=== PATIENT | female | born 2005 | race Caucasian/White ===

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

== ENCOUNTER 2023-07-23 17:10 | Observation (INO) | payer OTHER, SELFPAY ==
--- NOTE | ~2023-07-23 | US_ITS ---
EXAMINATION: US OB limited DATE: 07/23/2023 18:16 INDICATION: Fall during third trimester . TECHNIQUE: Real-time ultrasound of the pelvis was performed. The interpreting radiologist was not pre sent for the study. COMPARISON: None. FINDINGS: There is a single living fetus in vertex presentation. The placenta is posterior fundal and appears unremarkable. No evident subchorionic hematoma delayed small portion of the posterior margin of the p lacentas obscured by the fetus. heart rate is 130 beats per minute (bpm). The amniotic fluid in dex is 20.0 cm, which is normal (5th%-95%: 7.2-22.6 cm at weeks estimated gestational age) . IMPRESSION: 1. Single living fetus in vertex presentation with heart rate of 130 bpm. 2. Normal amniotic fluid index of 20.0 cm. Reviewed, dictated and finalized at location A. IMPRESSION: 1. Single living fetus in vertex presentation with heart rate of 130 bpm . 2. Normal amniotic fluid index of 20.0 cm.
--- NOTE | 2023-07-23 17:10 | LDADM ---
This patient, Maki Arndt, was admitted to OB Post 116 on 07/23/23 at 17:10. Plans for labor, pain management and were discussed with patient. Patient/family oriented to hospital policies and general routines including ID bracelet, bed and alarms, visiting hours, pain management, procedures, bathroom and other care routines, personal items, smoking policy, room service/diet and guest tray routines, security routines, and visiting hours. Patient/Family are encouraged to report perceived risks to care and to ask questions if they do not understand what they are told or what they should do. See OBIX for further documentation.
--- NOTE | 2023-07-23 17:32 | PC.NURSE ---
pt reports falling down the stairs around 1615 this afternoon. Pt denies any bleeding, no leaking of fluid, no pain and has felt baby move. Pt states she did not hit her belly. She states that she only hit her butt going down but did fall from the top stair all the way to the bottom stair. Pt has no complaints, only that she felt like her belly was shook up during the fall.
[2023-07-23 17:45] VITALS: BP 108/76; PULSE 91
--- NOTE | 2023-07-23 17:52 | PC.NURSE ---
Addendum entered by Sarah Beth Murray RN 07/23/23 18:08: ordered 2 hours of monitoring as well. Original Note: Dr. Dawn on the unit. reviewed tracing on the monitor. notified that pt fell down the stairs. pt has no bleeding, no pain and denies feeling ctxs. Order received for pt to have ultrasound for placenta check and JOSE.
[2023-07-23 17:56] VITALS: BMI 35.5
--- NOTE | 2023-07-23 18:42 | PC.NURSE ---
183: Dr. Dawn in department. Placenta and JOSE US report given to Dr. Dawn. Dr. Dawn gave verbal orders that patient can be discharged after FHT for 2 hours or patient can start her induction tonight. Patient verbalized her wishes to go home and get packed and return tomorrow. She will return tomorrow evening for her scheduled induction. Juancarlos Sylvester RN
--- NOTE | 2023-08-13 10:54 | PM.OBTRLD ---
OB - Triage/Final Diagnosis Visit Information Comments/Additional reasons for admission: I have assessed the risk for this patient, Maki Arndt, and determined that she would benefit from observation care. Final Diagnosis (1) Fall: Code(s): W19.XXXA - Unspecified fall, initial encounter Status: Acute
== END 2023-07-23 20:40 ==
PROVIDERS: Admitting Provider Obstetrics & Gynecology; Visit Provider Obstetrics & Gynecology
DX: Z04.3 Encounter for examination and observation following other accident (principal); O26.893 Other specified pregnancy related conditions, third trimester; W19.XXXA Unspecified fall, initial encounter; Z3A.39 39 weeks gestation of pregnancy
CPT/HCPCS: 76815; G0378; G0379

== ENCOUNTER 2023-07-24 15:49 | Inpatient (IN) | payer OTHER, SELFPAY ==
[2023-07-24] VITALS (30 sets, daily range): BP systolic 41–126; BP diastolic 25–86; PULSE 65–98; TEMP 36.4–36.6; BMI 35.1
[2023-07-24 16:26] LABS: Basophils Absolute Auto 0.1 K/mm3 (0.0-0.1); Basophils Percent Auto 0.5 % (0.2-1.2); Eosinophils Percent Auto 0.4 % (0-4.4); Hematocrit 34.5 % (37.0-47.0); Hemoglobin 11.5 g/dL (12.0-15.0); Immature Granulocyte Absolute 0.07 K/mm3 (0.00-0.031); Immature Granulocyte Percent A 0.6 % (0-0.5); Lymphocytes Absolute Auto 1.81 K/mm3 (0.9-3.2); Lymphocytes Percent Auto 16.5 % (18.3-44.2); Mean Corpuscular HGB Conc 33.3 g/dl (32-36); Mean Corpuscular Hemoglobin 31.3 pg (26-34); Mean Corpuscular Volume 93.8 fl (80-100); Mean Platelet Volume 11.3 fl (7.4-10.4); Monocytes Absolute Auto 0.8 K/mm3 (0.1-0.6); Monocytes Percent Auto 7.7 % (2.6-8.5); Neutrophils Absolute Auto 8.1 K/mm3 (1.3-6.7); Neutrophils Percent Auto 74.3 % (45.5-73.1); Platelet Count Result 306 k/mm3 (150-375); Red Blood Count 3.68 M/mm3 (4.2-5.4); Red Cell Distribution Width 13.9 % (11.5-14.5)
[2023-07-24] MEDS: LACTATED RINGERS 1,000 ML 125 ML IV CONT ×2 (16:29→20:44)
--- NOTE | 2023-07-24 16:33 | LDADM ---
This patient, Maki Arndt, was admitted to Labor/Delivery/Recovery 105 on 07/24/23 at 15:49. Plans for labor, pain management and were discussed with patient. Patient/family oriented to hospital policies and general routines including ID bracelet, bed and alarms, visiting hours, pain management, procedures, bathroom and other care routines, personal items, smoking policy, room service/diet and guest tray routines, infant security routines, and visiting hours. Patient/Family are encouraged to report perceived risks to care and to ask questions if they do not understand what they are told or what they should do. See OBIX for further documentation.
[2023-07-24] MEDS: miSOPROStol 25 MCG TABLET 50 MCG VAGINAL (17:08)
[2023-07-24] MEDS: miSOPROStol 25 MCG TABLET BY MOUTH (23:27)
[2023-07-25] VITALS (100 sets, daily range): BP systolic 83–152; BP diastolic 41–93; PULSE 48–111; RESP 16–18; TEMP 36.4–37.1; O2SAT 82–100
[2023-07-25] MEDS: miSOPROStol 25 MCG TABLET BY MOUTH (03:42)
--- NOTE | 2023-07-25 06:46 | WPDANESEPP ---
Anes - Eval Pre Procedure Procedure: labor epidural Date/Time: 07/25/23 06:46 Surgeon: kaycee Preop Diagnosis: pain during labor Pre Op Diagnosis: IOL Patient Data Age: 18 Gender: F Height: 1.6 m Weight: 90 kg Last Vital Signs Temp 36.4 C 07/25/23 05:50 Pulse 61 07/25/23 06:30 BP 83/70 L 07/25/23 06:30 O2 Del Method Room Air 07/24/23 16:33 Allergies Allergy/AdvReac Type Severity Reaction Status Date / Time metoclopramide [From Reglan] Allergy Rash Verified 06/29/23 13:42 Home Medications Medication Instructions Recorded Confirmed Type capsaicin 0.025 % topical cream 1 applic topical TID #25 grams 06/05/20 06/08/20 Rx ondansetron HCl 4 mg tablet 4 mg PO Q6H PRN nausea and 06/05/20 06/08/20 Rx (Zofran) vomiting #14 tabs Laboratory Tests 07/24/23 16:18 WBC 11.0 H K/mm3 (4.5-10.0) RBC 3.68 L M/mm3 (4.2-5.4) Hgb 11.5 L g/dL (12.0-15.0) Hct 34.5 L % (37.0-47.0) MCV 93.8 fl (80-100) MCH 31.3 pg (26-34) MCHC 33.3 g/dl (32-36) RDW 13.9 % (11.5-14.5) Plt Count 306 k/mm3 (150-375) MPV 11.3 H fl (7.4-10.4) Immature Gran % (Auto) 0.6 H % (0-0.5) Neut % (Auto) 74.3 H % (45.5-73.1) Lymph % (Auto) 16.5 L % (18.3-44.2) [place] % (Auto) 7.7 % (2.6-8.5) Eos % (Auto) 0.4 % (0-4.4) Baso % (Auto) 0.5 % (0.2-1.2) Lymph # (Auto) 1.81 K/mm3 (0.9-3.2) [place] # (Auto) 0.8 H K/mm3 (0.1-0.6) Eos # (Auto) 0.0 K/mm3 (0-0.3) Baso # (Auto) 0.1 K/mm3 (0.0-0.1) Abs Immat Gran (auto) 0.07 H K/mm3 (0.00-0.031) Absolute Neuts (auto) 8.1 H K/mm3 (1.3-6.7) Absolute Nucleated RBC 0.000 K/mm3 (0.0-0.012) Nucleated RBC % 0.0 % (0.0-0.2) RPR Pending Blood Type O Positive Antibody Screen Negative Patient hx anesthesia problems: none Family hx anesthesia problems: none Results Review: All pre-operative results and documents have been reviewed as part of the pre-operative evaluation. [facility] Past Medical History Medical History (Updated 07/25/23 @ 06:46 by Rebecca Dias CRNA) Anxiety Cannabinoid hyperemesis syndrome GERD (gastroesophageal reflux disease) IUP (intrauterine ), incidental Obesity Surgical History Surgical History No significant past surgical history Family History Family History Mother Family history non-contributory Social History Social History Social History: She is living with her transgender parent went from male to female. Smoking status: Never smoker Second hand tobacco smoke exposure: No Substance use: never Substance use type: marijuana Other substance usage details: Occasional Do You Feel Safe in your Home?: Yes Lack of Transportation: No Lack of Food: Never True Current Housing: I Have Housing Concerned About Future Housing: No Difficulty Paying Gas/Electric Bills: No Difficulty Paying for Meds: No Currently Unemployed: No Education: High School Diploma/GED Difficulty w/ Childcare or Family Care: No Gender identity (if verbalized by the patient): Female Spiritual care concerns: No Exam Day of Procedure 07/25/23 06:46
--- NOTE | 2023-07-25 07:17 | WPDOBADMIT ---
Obstetrics - Admit Note Admission Note: record reviewed. No pertinent additions to the history and/or any subsequent changes in the physical findings that are not consistent with the expected course of the were found. Additions to the history and/or subsequent changes in the physical findings follow. Elective IOL, SVE /-2 AROM moderate amount of clear, odorless fluid, anticipate vaginal delivery
[2023-07-25] MEDS: OXYTOCIN 30 UNITS/NS 500 ML 30 UNITS/500 ML BAG IV CONT (08:06)
[2023-07-25] MEDS: fentaNYL CITRATE INJ (*CRX) 100 MCG/2 ML VIAL 50 MCG IV PUSH (08:53)
[2023-07-25] MEDS: LACTATED RINGERS 1,000 ML 125 ML IV CONT ×2 (08:54→10:16)
[2023-07-25] MEDS: ONDANSETRON INJ 4 MG/2 ML VIAL IV PUSH (09:26)
[2023-07-25] MEDS: fentaNYL CITRATE INJ (*CRX) 100 MCG/2 ML VIAL IV PUSH (09:42)
--- NOTE | 2023-07-25 12:24 | PM.OBPRVD ---
OB - Vaginal Delivery Note Procedure Delivery date: 07/25/23 Induction method: AROM, Per Misoprostol Protocol and Per Pitocin Protocol Delivery monitor: External FHT and External Uterine Route of delivery: Episiotomy description: None Laceration Description: None Specimen: No Quantitative Blood Loss (ml): 130 Anesthesia type: Epidural Disposition: Floor Narrative: head delivered and compound presentation noted, slowly delivered anterior shoulder, then cord X 1 around arm, slowly delivered the rest of the baby without complication, mother and baby skin to skin in stable condition [place] Baby Date of : 07/25/23 Time of : 12:09 Weeks of gestation at delivery: 39 gender: Female presentation: vertex position: Right Occiput Anterior Placenta delivery description: Spontaneous Cord Vessel Description: 3 Vessels, Delayed Cord Clamping and Around Extremity (x1) score one minute: 8 score five minutes: 9
[2023-07-25] MEDS: OXYTOCIN 30 UNITS/NS 500 ML 30 UNITS/500 ML BAG 125 UNITS IV CONT (12:46)
[2023-07-25 15:20] LABS: Rapid Plasma Reagin Non-Reactive (NonReactive)
--- NOTE | 2023-07-25 17:42 | OBPPTRN ---
1507-Patient transferred to post room #282 via wheelchair. Support person present. Oriented to unit, room, information board, rooming in, admission packet and security measures. Patient verbalizes understanding.
--- NOTE | 2023-07-25 18:01 | PC.NURSE ---
1600-Upon arrival to floor mother called out stating she wanted formula bottles; Mother told RN that she wanted to breast & bottle feed so she wanted to have formula in her crib drawer.
[2023-07-25] MEDS: IBUPROFEN 600 MG TABLET PO (19:44)
[2023-07-26 01:54] VITALS: BP 112/65; PULSE 79; RESP 18; TEMP 36.6; O2SAT 99
[2023-07-26 06:05] LABS: Hematocrit 30.4 % (37.0-47.0); Hemoglobin 9.9 g/dL (12.0-15.0)
[2023-07-26] MEDS: DOCUSATE SODIUM 100 MG CAPSULE PO ×2 (06:53→15:45)
[2023-07-26] MEDS: MULTIVIT/MIN/PREN/FOL AC/IRON TABLET 1 TAB PO (06:53)
[2023-07-26] MEDS: POLYSACCHARIDE IRON COMPLEX 150 MG CAPSULE PO ×2 (06:53→15:45)
--- NOTE | 2023-07-26 07:44 | PM.OBPNVD ---
OB - PN: Subj Subjective Date/time seen: 07/26/23 07:44 Interval history: pp day 1 s/p vaginal delivery doing well OB - PN: Obj Data Labs 07/26/23 04:24 Labs: Laboratory Results - last 24 hr 07/24/23 07/26/23 16:18 04:24 Hgb 9.9 L Hct 30.4 L RPR Non-reactive OB - PN A/P Plan day: 1 Time Spent With Patient Time: Total time spent is greater than 50% in coordination of care (as documented) at patient's floor/unit and/or counseling patient: Review of Systems Review of Systems: All systems reviewed & are unremarkable except as noted in HPI and below Exam Const: General: cooperative and healthy appearing Chest: Chest palpation & inspection: normal inspection of the chest Resp: Effort & Inspection: normal respiratory effort Auscultation: clear to auscultation bilaterally Cardio: Rate: regular rate Rhythm: regular rhythm Back/Spine/Pelvis: Back: no CVA tenderness Skin: General skin exam: normal color Neuro: General: patient oriented x3 Extrem: Right lower extremity: normal to inspection Left lower extremity: normal to inspection Psych: Appearance: grossly normal
[2023-07-26 08:35] VITALS: BP 121/57; PULSE 93; RESP 16; TEMP 36.4; O2SAT 100
--- NOTE | 2023-07-26 14:12 | PC.NURSE ---
[id number] Introductions were made, then consulted with patient to assess needs related to . Discussed with mother her?plans to feed?her infant and the?experience so far. We discussed protecting the milk supply with frequent latching to the breast and pumping if is receiving a bottle of formula. Encouraged understanding of the benefits of skin to skin (demonstrating unwrapping infant and placing upright on her chest), stimulating with massage touch, changing positions to encourage wakefulness, how to watch for early feeding cues, responsive feeding, feeding on demand (aiming for 8-12 times in 24 hours, about every 2-3 hours), milk production, building/maintaining a milk supply, duration of feeding, signs of adequate intake/output and how to record on the feeding sheet. Mother voiced understanding of skin to skin, on demand and encouraging infant to wake and breastfeed if it has been 2 -2.5 hours since the start of the last , to call if does not latch, or if there is discomfort with . Resources used for education were facilitated with the visual educational handouts/ tool/mom and baby guide. Inpatient/outpatient resources provided with feeding sheet, name written on the communication board, and the mom/baby guide. Parents voiced understanding of information, demonstrated learning and will call if there is a request for assistance. Encouraged paced bottle feeding. Father of baby demonstrates understanding. [id number] Pump taken into the room to initiate pumping with Radha Mosley RN. Instructions given on cleaning, care, usage, that there should be no pain, pumping schedule for milk production, collection, and storage of human milk. Patient was assessed for correct placement, flange size (21mm), to pump for comfort and nipple stretching/stimulation for adequate milk production every 3 hours (8 times in 24 hours) 1-2 times at night. Parents are encouraged to record the pumping schedule on the feeding sheet. EBM will be saved for the next feeding.?Mother voiced understanding of the education shared along with mom/baby guide and the pump measurement, flange fit handout for additional resource information. Reported to the Primary RN.
[2023-07-26] MEDS: IBUPROFEN 600 MG TABLET PO (15:45)
--- NOTE | 2023-07-26 15:57 | WPDANLDPN2 ---
Anes-Prog Note L&D Date/Time: 07/26/23 15:57 Comfortable throughout: labor and delivery Neuraxial method: epidural Epidural/Spinal procedure site: clean & non-tender Neuro status: Neuro function grossly intact. Cardiovascular status: normal Respiratory status: normal Airway patency: baseline Mental status: baseline Post-Op hydration status: normal Vital Signs: Last Vital Signs Temp 36.4 C 07/26/23 08:35 Pulse 93 07/26/23 08:35 Resp 16 07/26/23 08:35 BP 121/57 L 07/26/23 08:35 Pulse Ox 100 07/26/23 08:35 O2 Del Method Room Air 07/25/23 22:22 Pain score (VAS): 03/14 Post-procedural complaints: none Patient feedback: Patient satisfied with anesthetic care.
[2023-07-26 20:26] VITALS: BP 109/79; PULSE 89; RESP 16; TEMP 36.8; O2SAT 100
[2023-07-27] MEDS: POLYSACCHARIDE IRON COMPLEX 150 MG CAPSULE PO (07:20)
[2023-07-27] MEDS: DOCUSATE SODIUM 100 MG CAPSULE PO (07:20)
[2023-07-27] MEDS: IBUPROFEN 600 MG TABLET PO (07:21)
[2023-07-27 08:10] VITALS: BP 110/49; PULSE 75; RESP 16; TEMP 36.8; O2SAT 100
--- NOTE | 2023-07-27 08:13 | PM.OBPNVD ---
OB - PN: Subj Subjective Date/time seen: 07/27/23 08:13 Interval history: pp day 2 s/p vaginal delivery doing well OB - PN: Obj Data Labs 07/26/23 04:24 OB - PN A/P Plan day: 2 Plan: routine care and discharge home Time Spent With Patient Time: Total time spent is greater than 50% in coordination of care (as documented) at patient's floor/unit and/or counseling patient: Review of Systems Review of Systems: All systems reviewed & are unremarkable except as noted in HPI and below Exam Const: General: cooperative and healthy appearing Chest: Chest palpation & inspection: normal inspection of the chest Resp: Effort & Inspection: normal respiratory effort Cardio: Rate: regular rate Skin: General skin exam: normal color Neuro: General: patient oriented x3
--- NOTE | 2023-07-27 08:15 | P.DS_ITS ---
DS: Admitting Diagnosis Discharge Date 07/27/23 Admitting Diagnosis IOL DS: Discharge Diagnosis Discharge Diagnosis (1) Vaginal delivery: Code(s): O80 - Encounter for full-term uncomplicated delivery Status: Acute OB - DS: Summary OB Procedures : None OB Procedures Intrapartum: Spontaneous Vag Delivery OB Procedures: : None Peripartum Data Laceration Description: None Episiotomy description: None Time Spent with Patient Time attestation: Total time spent providing and/or coordinating discharge services: Discharge Plan Discharge Attending physician on discharge: Rodney Dawn Discharging Clinician: Ana Jolly Patient Disposition: Home, Self-Care Activity: pelvic rest Diet: regular Patient Instructions: Antibiotic Form Stand Alone Forms: General Discharge Information Follow-up/Referrals: Ana Jolly CNM [Certified Nurse Fine Wire Drawer] - 4 Weeks Discharge Medications: New ibuprofen 600 mg Tablet 600 mg PO Q6H PRN (Reason: Cramping) Qty: 30 0RF Continued capsaicin 0.025 % cream 1 applic topical TID Qty: 25 0RF Rx Instructions: do not wash area for at least 30 min after application, apply to abdominal area Discontinued ondansetron HCl [Zofran] 4 mg tablet 4 mg PO Q6H PRN (Reason: nausea and vomiting) Qty: 14 0RF Date of admission: 07/24/23 15:49 Primary Care Provider: UNKNOWN,DOCTOR Admitting Provider: Ramana Clarke Attending physician on admission: Ramana Clarke Condition: Stable
[2023-07-27] MEDS: MULTIVIT/MIN/PREN/FOL AC/IRON TABLET 1 TAB PO (09:50)
--- NOTE | 2023-07-27 10:50 | PC.NURSE ---
[id number] Consulted with mother concerning needs. Mother is feeding appropriately for growth of infant and understands stimulating infant to eat if needed. Infant has had appropriate feedings in the last 24 hours meets the outcomes for weight, output, blood sugar and jaundice at this time. Reinforced understanding of milk production, transition of milk, signs of adequate intake, transition of stool, prevention/relief of engorgement, plugged ducts, mastitis, responsive watching for feeding cues, the different methods of stimulating to breastfeed 1-3 hours after the start of the last feeding, community resources, and when to call a provider using the resource of the feeding sheet along with the mom and baby guide. Parents are interested in taking home a pump provided by insurance and assistance with . Reviewed the [employer] pump [id number] with parents. After feeding cues were visualized by infant mother was given guidance on bringing to the left breast with cross cradle positioning. Infant latched optimally and education given to the mother of how to visualize the suckling (with good rocking jaw motion), swallows (dropping of the lower jaw) and how to listen for drinking at the breast (the ka sound) and demonstrated. was able to maintain latch without pain to mother protecting the nipple with optimal positioning and latching. Reviewed comfort measures of healing with a warm, wet washcloth to rinse breast, then leave open to air-dry, good handwashing when or touching the breast/nipples to prevent infection. Mother voiced understanding of skin to skin, stimulating with massage touch, responsive feedings, hand expressed colostrum, talking to infant to encourage if it has been 2 -2.5 hours since the start of the last , to call if infant does not latch, or if there is discomfort with . Resources used for education were facilitated with the visual educational handouts/mom and baby guide Inpatient/outpatient resources provided with feeding sheet, name written on the communication board, the mom/baby guide and encouraged connection with W.I.C. counselor. Parents voiced understanding of information, demonstrated learning and will call if there is a request for assistance. Reported to the Primary RN. [phone] Purposefully rounded and parents as a team had independently latched infant to the right breast using cradle positioning, mother denies pain and infant is demonstrating effective . Infant has had appropriate feedings in the last 24 hours meets the outcomes for weight, output, blood sugar and jaundice at this time. Reinforced understanding of milk production, transition of milk, signs of adequate intake, transition of stool, prevention/relief of engorgement, plugged ducts, mastitis, responsive watching for feeding cues, the different methods of stimulating to breastfeed 1-3 hours after the start of the last feeding, community resources, and when to call a provider using the resource of the feeding sheet along with the mom and baby guide. Mother voiced understanding of the information shared, is confident to continue effectively her infant at home, when to call for assistance, denies any additional assistance or education at this time.
[2023-07-28 09:17] VITALS: BP 137/74; PULSE 93; RESP 18; TEMP 36.8; O2SAT 99
== END 2023-07-27 12:00 | disposition home or self-care (01) | DRG 560 ==
LOC: ANHLDR 15:53 → ANHOB2 07-25 15:57
PROVIDERS: Advanced Practice Midwife; Admitting Provider Obstetrics & Gynecology; Visit Provider Obstetrics & Gynecology
DX: O43.113 Circumvallate placenta, third trimester (principal); Z37.0 Single live birth; Z3A.39 39 weeks gestation of pregnancy; O32.6XX0 Maternal care for compound presentation, not applicable or unspecified; O69.89X0 Labor and delivery complicated by other cord complications, not applicable or unspecified; O69.82X0 Labor and delivery complicated by other cord entanglement, without compression, not applicable or unspecified
CPT/HCPCS: 36415; 85014; 85018; 85025; 86592; 86850; 86900; 86901; A9270; J2405; J2590; J2795; J3010; J7120

== ENCOUNTER 2024-11-22 09:28 | Outpatient (RCR) | payer OTHER, SELFPAY ==
--- NOTE | ~2024-11-22 | US_ITS ---
EXAMINATION: US OB follow up w BPP, 11/22/2024 11:19 CDT HISTORY: growth and JOSE Comparison: None Technique: Castillo-scale sonographic images were obtained Findings: Single live intrauterine in vertex presentation identified corresponding to 37 weeks and 1 day. The placenta is located anteriorly and fundally and appears unremarkable. JOSE 14.7 heart rate 157 BPD 9.37, 38 weeks and 1 day, HC 23.38, 38 weeks and 1 day, AC 33.56, 37 weeks and 3 days. FL 6.82, 35 weeks and 0 days EFW 3099 g +/- 464 g IMPRESSION: Single live intrauterine detailed above Reviewed, dictated and finalized at location A.
[2024-11-22 10:38] VITALS: BP 133/83; PULSE 92
[2024-11-22 10:48] LABS: Alanine Aminotransferase 15 U/L (6-35); Albumin Level 3.4 g/dL (3.5-5.1); Alkaline Phosphatase 118 U/L (38-126); Anion Gap 6 mmol/L (4-12); Aspartate Amino Transferase 23 U/L (14-36); Bilirubin,Total 0.4 mg/dL (0.2-1.3); Blood Urea Nitrogen 3 mg/dL (7-17); Calcium 8.8 mg/dL (8.4-10.2); Carbon Dioxide 21 mmol/L (22-30); Chloride 107 mmol/L (98-107); Estimated Glomerular Filt Rate > 60; Glucose 84 mg/dL (65-110); Potassium 3.9 mmol/L (3.4-5.0); Sodium 134 mmol/L (137-145); Total Protein 7.0 g/dL (6.3-8.2)
--- NOTE | 2024-11-22 11:39 | PC.NURSE ---
This RN notified Dr. Clarke, library information technician, of patient's NST at 1133 am. Provider made aware of variable noted during NST. Provider updated with BPP/JOSE/ Growth results. No new orders.
[2024-11-28 02:07] LABS: Total Bile Acids 0.60 umol/L (.)
== END 2024-12-03 17:44 | disposition other institution (70) ==
LOC: ANHOBOP 09:28
PROVIDERS: Advanced Practice Midwife; Visit Provider Obstetrics & Gynecology
DX: L29.9 Pruritus, unspecified (principal)
CPT/HCPCS: 36415; 59025; 76816; 76819; 80053; 82542

== ENCOUNTER 2024-11-26 05:55 | Inpatient (IN) | payer OTHER, SELFPAY ==
[2024-11-26] VITALS (154 sets, daily range): BP systolic 71–149; BP diastolic 38–103; PULSE 36–182; RESP 16; TEMP 36.6–37.1; O2SAT 81–100; BMI 37.0
--- OUTSIDE RECORDS SUMMARY | 2024-11-26 06:02 | XMS_ITS | Clinical Summary ---
Author Organization [facility] Address [address] [place] [address] Care Team Providers Care Tail Dogger Name Role Phone Alfa Redding MD Primary Care Provide r Allergies Active Allergy Reactions Criticality Noted Date Comments Metoclopramide Unknown 06/08/2020 Medications No known medications Active Problems Problem Noted Date Diagnosed Date Sexually active child 06/10/2020 Assessment & Plan (06/10/2020 10:08 AM CDT): She is sexually active. She has had mood lability with the depo shot. She desires to have an IUD. Acute gastritis 01/04/2018 Assessment & Plan (06/09/2020 11:18 AM CDT): She has a burning sensation that radiates up the neck and she has a history of gastritis. She has been on a PPI in the past and is no longer taking a PPI. Will monitor for benefit of PPI Plan - PO PPI - Will obtain H. Pylori stool antigen to determine clearance from previous treatment. Assessment & Plan (06/08/2020 6:16 PM CDT): She has a burning sensation that radiates up the neck and she has a history of gastritis. She has been on a PPI in the past and is no longer taking a PPI. Will monitor for benefit of PPI Plan - IV PPI until she able to tolerate PO - Will obtain H. Pylori stool antigen to determine clearance from previous treatment. Cannabinoid hyperemesis syndrome 01/03/2018 Assessment & Plan (06/09/2020 11:18 AM CDT): Maki is a 14-year-old with a history of gastritis and cannabinoid hyperemesis syndrome who presents with 3 days of low abdominal pain and emesis. She has had normal abdominal CT. She had low potassium most likely from vomiting. Her potassium should be rechecked and replenished as needed. The differential for her vomiting includes cannabinoid hyperemesis syndrome, viral gastroenteritis, and pelvic inflammatory disease. Unlikely diagnoses include pancreatitis given normal lipase, appendicitis given normal CT, and diabetes given normal glucose. She does endorse burning with urination. She is sexually active and requested to have STI testing. Will provide supportive care. Plan - Tylenol, Benadryl and Compazine for pain and nausea q6hr - NS fluids with KCl - replete K as needed - Regular diet Assessment & Plan (06/08/2020 6:47 PM CDT): Maki is a 14-year-old with a history of gastritis and cannabinoid hyperemesis syndrome who presents with 3 days of low abdominal pain and emesis. She has had normal abdominal CT. She had low potassium most likely from vomiting. Her potassium should be rechecked and replenished as needed. The differential for her vomiting includes cannabinoid hyperemesis syndrome, viral gastroenteritis, and pelvic inflammatory disease. Unlikely diagnoses include pancreatitis given normal lipase, appendicitis given normal CT, and diabetes given normal glucose. She does endorse burning with urination. She is sexually active and requested to have STI testing. Will provide supportive care. Plan - Obtain CMP, viral multiplex, and UA - Obtain HIV, RPR, GC/CT from urine - Benadryl and Compazine for pain and nausea q6hr - NS fluids with KCl - replete K as needed - Regular diet Assessment & Plan (01/03/2018 5:47 AM CDT): 12 year old female presenting with two days of epigastric abdominal pain, reflux, nausea, and vomiting. CT abdomen obtained at an OSH today raised concern for esophageal perforation, but esophagram obtained at [facility] today demonstrated an intact esophagus. CT abdomen has ruled out other causes of abdominal pain. The pain experienced is most likely related to GERD vs. Acute gastritis. Upon admission and arrival to the floor Maki endorsed pain, and had tenderness to palpation of her epigastrium without any alarming peritoneal signs. Plan to treat pain with 10 cc/kg NS bolus, initiate treatment with Lansoprazole and Maalox, and administer Zofran PRN for nausea. Estimated Date of Delivery Comme nts Yes 12/13/2024 Based on Patient Reported Encounters Date Type Department Care Team Description 10/31/2024 Hospital Encounter [facility] [place] [address] [place] [address] Deya Mendiola DO 08/26/2024 6:16 AM CDT - 08/26/2024 8:35 AM CDT Hospital Encounter [facility] [place] [address] [address] [place] [address] Deya Mendiola DO Discharge Disposition: Discharge to home or self care from Last 3 Months Surgical History Surgery Date Site/Laterality Comments WRIST SURGERY Social History Tobacco Use Types Packs/Day Years Used Date Smoking Tobacco: Former Cigarettes Tobacco Cessation:Counseling Given: Not Answered Personal Safety Answer Date Recorded Have you ever been in or are you currently in a harmful physical or emotional relationship or is someone making you feel afraid or unsafe? Denies 01/15/2023 Estimated Date of Delivery Comme nts Yes 12/13/2024 Based on Patient Reported Sex and Gender Information Value Date Recorded Sex Assigned at Not on file Legal Sex Female 4:59 PM PAPER FINAL INSPECTOR Gender Identity Not on file Sexual Orientation Not on file Obstetrics History Para Term AB IAB SAB Ectopic Multiple Livin g Live Births 2 1 1 Date Outcome GA Total Labor Labor/2nd/3rd Weight Sex Type Anes PTL Verónica A1 A5 Name Clin 024 Term Current Summary Episode Dates Number of Fetuses Estimated Date of Delivery 08/26/2024 - Present (11/26/2024) 12/13/2024 (set by Yola Flanagan CNM on 08/26/2024 based on Patient Reported) Dating Summary Based On SHAHID GA Diff Patient Reported 12/13/2024 Working Vitals Date GA Fund Present FHR Mvmt BP Weight Edema Alb Glu Ket Dil/ Eff/Sta 24w3d Inpatient data not displayed here. See encounter summary. Last Filed Vital Signs Vital Sign Reading Time Taken Comments Blood Pressure 111/65 08/26/2024 7:45 AM CDT Pulse 73 08/26/2024 7:45 AM CDT Temperature 36.1 C (97 F) 01/15/2023 3:51 PM PAPER FINAL INSPECTOR Respiratory Rate 14 01/15/2023 9:13 PM PAPER FINAL INSPECTOR Oxygen Saturation 93% 08/26/2024 6:44 AM CDT Inhaled Oxygen Concentration - - Weight 63.5 kg (140 lb) 01/15/2023 3:51 PM PAPER FINAL INSPECTOR Height 161 cm (5' 3.39) 06/08/2020 4:53 PM CDT Body Mass Index - - Plan of Treatment Health Maintenance Due Date Last Done Comments Cervical Cancer Screening 2003 Depression Screening 2003 DTaP/Tdap/Td Vaccine (1 - Tdap) 06/10/2014 Varicella Vaccines (1 of 2 - 13+ 2-dose series) 06/10/2016 HPV Vaccines (1 - 3-dose series) 06/10/2018 Meningococcal B Vaccine (1 o f 2 - Standard) 2019 Hepatitis B Screening 06/10/2021 Regular Well Visit/Exam 18-64 06/10/2021 Influenza Vaccine (#1) 2024 03/23/2019 Hepatitis C Screening Completed 01/05/2018 Meningococcal Vaccine Aged Out No suzy sammie eligible based on patient's age to complete this topic Pneumococcal vaccine <65 Aged Out No longer eligible based on patient's age to complete this topic Procedures Procedure Name Priority Date/Time Associated Diagnosis Comments URINALYSIS AND REFLEX TO MICROSCOPIC AND CULTURE Routine 08/26/2024 6:32 AM CDT HEPATITIS PANEL, ACUTE STAT 01/05/2018 9:43 AM CDT from Last 3 Months or Most Recently Relevant to Health Maintenance Results * (ABNORMAL) Urinalysis reflex to microscopic and culture Urine, clean voided (08/26/2024 6:32 AM CDT) Color, ur Yellow Yellow Clarity, ur Turbid(A) Clear [facility] ([facility]) Specific gravity, ur 1.023 1.003 - 1.030 [facility] ([facility]) pH, urine 6.0 [facility] ([facility]) Comment: Interpretive Data U rine pH is affected by diet, medications, systemic acid-base disturbances, and renal tubular function. pH may affect urinary stone formation. For example, urine pH below 6.0 may help reduce the tendency for calcium phosphate stones and pH greater than 6.0 may reduce the tendency for uric acid stone formation. Source: [facility] Current Interpretive Data was last revised on 2017 Protein, ur ql Negative Negative [facility] ([facility]) Glucose, ur ql Negative Negative [facility] ([facility]) Ketones, ur Negative Negative [facility] ([facility]) Bilirubin, ur Negative Negative [facility] ([facility]) Blood, ur Negative Negative [facility] ([facility]) Urobilinogen, ur <2.0 <2.0 mg/dL [facility] ([facility]) Nitrite, ur Negative Negative [facility] ([facility]) Leukocyte esterase, ur Negative Negative [facility] ([facility]) UA reflex comment Reflex conditions for microscopic UA and culture not met. [facility] ([facility]) Urine, clean voided 08/26/2024 6:32 AM CDT 08/26/2024 6:40 AM CDT Deya Mendiola DO LAB MICROBIOLOGY - GENE RAL ORDERABLES Final Result [facility] ([facility]) [address] [facility] Department [place] [address] * Hepatitis panel, acute (01/05/2018 9:43 AM CDT) Hep A IgM Nonreactive Nonreactive [facility] Comment: Interpretive Data If test is reported as GRAYZONE, new sample should be drawn in two weeks for testing. Current interpretive data was last revised on 2016. Testing performed by: [facility], [address] [facility] [place] [address] Hep B core IgM Nonreactive Nonreactive [facility] Comment: Interpretive Data If test is reported as GRAYZONE, new sample should be drawn for testing. Current interpretive data was last revised on 2016. Testing performed by: [facility], [address] [place] [address] Hep C Ab Nonreactive Nonreactive [facility] Comment: Interpretive Data Positive and greyzone results should be confirmed by a molecular method. If positive or greyzone, a second separately collected sample should be submitted for Hepatitis C Virus RNA. Detection and Quantitation by Real-Time Reverse Stock Shaper-PCR.Current Interpretive data was last revised on 2016. Testing performed by: [facility], [address] [place]., [address] HepBsAg Nonreactive Nonreactive [facility] Comment:Testing performed by : [facility], [address] [place]., [address] Blood specimen (specimen) 01/05/2018 9:43 AM CDT 01/05/2018 10:[address] [facility] - 01/05/2018 11:20 AM CDT Safia Bills MD LAB MICROBIOLOGY - GENERAL ORDERABLES Edited Result - Final [facility] Department [place] [address] from Last 3 Months or Most Recently Relevant to Health Maintenance Insurance [facility] [employer] Advance Directives For more information, please contact: [phone] * Full Code (Latest Code Status on File) Date Activated Date Inactivated Comments 06/08/2020 5:25 PM 06/10/2020 3:25 PM * Full Code Date Activated Date Inactivated Comments 01/03/2018 4:55 AM 01/06/2018 7:18 PM Care Teams Tail Dogger Relationship Specialty Start Date End Date Alfa Redding MD [address] [place] [address] PCP - General 01/02/18
--- OUTSIDE RECORDS SUMMARY | 2024-11-26 06:02 | XMS_ITS | Clinical Summary ---
Author Organization [facility] Address [address] [place] [id number] Care Team Providers Care Feed Mill Operator Name Role Phone Alfa Redding MD Primary Care Provider [phone] Allergies No known active allergies Medications ondansetron 4 MG tablet 0 Active OLANZapine 5 MG tablet Take 10 mg by mouth. 0 Active medroxyPROGESTERon e injection 0 Active diphenhydrAMINE 25 MG tablet Take 25 mg by mouth every 6 (six) hours as needed. 0 Active capsaicin 0.025 % cream Apply topically every 2 (two) hours as needed. 0 Active cyproheptadine 4 MG tablet 0 Active ondansetron (ZOFRAN-ODT) 4 MG disintegrating tablet Take 1 tablet (4 mg total) by mouth every 8 (eight) hours as needed for Nausea. 20 tablet 3 Active Active Problems No known active problems Social History Tobacco Use Types Packs/Day Years Used Date Smoking Tobacco: Never Smokeless Tobacco: Never Alcohol Use Standard Drinks/Week Comments Never 0 (1 standard drink = 0.6 oz pur e alcohol) AUDIT-C Answer Date Recorded Q1: How often do you have a drink containing alc ohol? Never 01/23/2020 Average Number of Drinks Not on file 020 Frequency of Binge Drinking Not on file 01/04 Comments No Sex and Gender Information Value Date Recorded Sex Assigned at Not on file Legal Sex Female 10:02 PM FENCE MAKING MACHINE OPERATOR Gender Identity Not on file Sexual Orientation Not on file Last Filed Vital Signs Vital Sign Reading Time Taken Comments Blood Pressure 114/70 04/28/2022 3:21 PM FENCE MAKING MACHINE OPERATOR Pulse 84 04/28/2022 3:21 PM FENCE MAKING MACHINE OPERATOR Temperature 36.9 C (98.5 F) 04/28/2022 12:26 PM FENCE MAKING MACHINE OPERATOR Respiratory Rate 16 04/28/2022 3:21 PM FENCE MAKING MACHINE OPERATOR Oxygen Saturation 98% 04/28/2022 3:21 PM FENCE MAKING MACHINE OPERATOR Inhaled Oxygen Concentration - - Weight 81.6 kg (180 lb) 04/28/2022 10:29 AM FENCE MAKING MACHINE OPERATOR Height 165.1 cm (5' 5) 04/28/2022 10:05 AM FENCE MAKING MACHINE OPERATOR Body Mass Index 29.95 04/28/2022 10:05 AM FENCE MAKING MACHINE OPERATOR Plan of Treatment Health Maintenance Due Date Last Done Comments Hepatitis B Vaccines (3 of 3 - 3-dose series) 10/11/2004 08/16/2004, 2003 Annual Physical 06/10/2006 Meningococcal B Vaccine (1 of 2 - Standard) 2019 Hepatitis C 06/10/2021 DTaP, Tdap and Td Vaccines (4 - Tdap) 06/10/2022 08/16/2004, 06/28/2004, 2003, Additional history exists Cervical Cancer Screening Pap Smear (Age 21 to 29) Every 3 Years 01/23/2023 01/24/2020, 01/24/2020, 07/24/2019, Additional history exists Cervical Cancer Screening 01/23/2023 COVID-19 Vaccine ( season) 2024 Meningococcal Vaccine Aged Out 11/03/2014 No suzy sammie eligible based on patient's age to complete this topic HPV Vaccines Completed 10/29/2017, 11/03/2014 Pneumococcal Vaccine: Pediatrics (0 to 5 Years) and At-Risk Patients (6 to 49 Years) Aged Out No longer eligible based on patient's age to complete this topic RSV Immunizations Under 20 Months Aged Out No longer eligible based on patient's age to complete this topic Insurance [place] Care Teams Feed Mill Operator Relationship Specialty Start Date End Date Alfa Redding MD [address] [place] [address] PCP - General FAMILY PRACTICE 01/23/20
--- OUTSIDE RECORDS SUMMARY | 2024-11-26 06:02 | XMS_ITS | Clinical Summary ---
Author Organization [facility] Address [address] [place] [address] Phone Care Team Providers Care Glass Wool Blanket Machine Feeder Name Role Phone Alfa Redding MD Primary Care Provider [phone] Allergies No known active allergies Medications ondansetron (ZOFRAN-ODT) 4 MG TABLET DISPERSIBLE Take 1 Tablet by mouth every 8 hours as needed for Nausea - 1st line. 20 Tablet 01/23/2023 Active Encounters Date Type Department Care Team Description 10/02/2024 [facility] [address] [place] [address] Provider, None Advice Only from Last 3 Months Social History Tobacco Use Types Packs/Day Years Used Date Smoking Tobacco: Never Smokeless Tobacco: Never Tobacco Cessation:Counseling Given: Not Answered Alcohol Use Standard Drinks/Week Comments Not Currently 0 (1 standard drink = 0.6 oz pur e alcohol) Comments Unknown Sex and Gender Information Value Date Recorded Sex Assigned at Not on file Legal Sex Female 3:09 PM ROBOTICS MECHANIC Gender Identity Not on file Sexual Orientation Not on file Last Filed Vital Signs Vital Sign Reading Time Taken Comments Blood Pressure 106/61 01/23/2023 4:15 PM ROBOTICS MECHANIC Pulse 88 01/23/2023 6:07 PM ROBOTICS MECHANIC Temperature 36.2 C (97.1 F) 01/23/2023 3:24 PM ROBOTICS MECHANIC Respiratory Rate 18 01/23/2023 3:24 PM ROBOTICS MECHANIC Oxygen Saturation 100% 01/23/2023 6:07 PM ROBOTICS MECHANIC Inhaled Oxygen Concentration - - Weight 61.7 kg (136 lb) 01/23/2023 3:24 PM ROBOTICS MECHANIC Height 160 cm (5' 3) 01/23/2023 3:24 PM ROBOTICS MECHANIC Body Mass Index 24.09 01/23/2023 3:24 PM ROBOTICS MECHANIC Plan of Treatment Not on file Insurance MEDICAID [employer] Care Teams Glass Wool Blanket Machine Feeder Relationship Specialty Start Date End Date Alfa Redding MD [address] [place] [address] PCP - General Pediatrics 01/23/23
--- OUTSIDE RECORDS SUMMARY | 2024-11-26 06:02 | XMS_ITS | Encounter Summary ---
Author Organization 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 Denies 01/15/2023 Estimated Date of Delivery Comme nts Yes 12/13/2024 Based on Patient Reported Sex and Gender Information Value Date Recorded Sex Assigned at Not on file Legal Sex Female 4:59 PM [employer] Gender Identity Not on file Sexual Orientation Not on file documented as of this encounter Plan of Treatment Not on file documented as of this encounter Visit Diagnoses Not on filedocumented in this encounter Care Teams [employer] Path[employer] Teacher Relationship Specialty Start Date End Date Alfa Redding MD [address] [place] [address] PCP - General 01/02/18 documented as of this encounter
--- NOTE | 2024-11-26 06:58 | P.PNAN_ITS ---
Anes - Eval Pre Procedure Procedure: labor epidural Date/Time: 11/26/24 06:58 Surgeon: jasiel Preop Diagnosis: pain during labor Pre Op Diagnosis: IOL Patient Data Age: 19 Gender: F Height: Weight: Allergies Allergy/AdvReac Type Severity Reaction Status Date / Time metoclopramide (From Reglan) Allergy Rash Verified 11/22/24 09:49 Home Medications ?Medication ?Instructions ?Recorded ?Confirmed ?Type vit no.95-ferrous 1 tablet PO DAILY 11/22/24 11/22/24 History fumarate 28 mg-folic acid 800 mcg tablet () ursodiol 300 mg capsule 300 mg PO BID 11/22/2411/22 History Patient hx anesthesia problems: none Family hx anesthesia problems: none Results Review: All pre-operative results and documents have been reviewed as part of the pre- operative evaluation. [facility] Past Medical History Medical History (Updated 08/13/23 @ 10:55 by Rodney Dawn MD) IUP (intrauterine ), incidental Anxiety Obesity Cannabinoid hyperemesis syndrome GERD (gastroesophageal reflux disease) Surgical History Surgical History No significant past surgical history Family History Family History Mother Family history non-contributory Social History Social History Social History: She is living with her transgender parent went from male to female. Smoking status: Never smoker Second hand tobacco smoke exposure: No Substance use: never Substance use type: marijuana Other substance usage details: Occasional Do You Feel Safe in your Home?: Yes Lack of Transportation: No Lack of Food: Never True Current Housing: I Have Housing Concerned About Future Housing: No Difficulty Paying Gas/Electric Bills: No Difficulty Paying for Meds: No Currently Unemployed: No Education: High School Diploma/GED Difficulty w/ Childcare or Family Care: No Gender identity (if verbalized by the patient): Female Spiritual care concerns: No Exam Day of Procedure 11/26/24 06:58
--- NOTE | 2024-11-26 07:04 | LDADM ---
This patient, Maki Arndt, was admitted to Labor/Delivery/Recovery 107 on 11/26/24 at 05:55. Plans for labor, pain management and were discussed with patient. Patient/family oriented to hospital policies and general routines including ID bracelet, bed and alarms, visiting hours, pain management, procedures, bathroom and other care routines, personal items, smoking policy, room service/diet and guest tray routines, infant security routines, and visiting hours. Patient/Family are encouraged to report perceived risks to care and to ask questions if they do not understand what they are told or what they should do. See OBIX for further documentation.
[2024-11-26 07:28] LABS: Hematocrit 30.6 % (37.0-47.0); Hemoglobin 10.1 g/dL (12.0-15.0); Immature Granulocyte Percent A 0.9 % (0-0.5); Lymphocytes Absolute Auto 1.37 K/mm3 (0.9-3.2); Mean Corpuscular HGB Conc 33.0 g/dl (32-36); Mean Corpuscular Hemoglobin 30.8 pg (26-34); Mean Corpuscular Volume 93.3 fl (80-100); Nucleated Red Blood Cells Absolute Auto 0.000 K/mm3 (0.0-0.012); Nucleated Red Blood Cells Perc 0.0 % (0.0-0.2); Platelet Count Result 242 k/mm3 (150-375); Red Blood Count 3.28 M/mm3 (4.2-5.4); White Blood Count 11.7 K/mm3 (4.5-10.0)
[2024-11-26] MEDS: LACTATED RINGERS 1,000 ML 125 ML IV CONT ×2 (07:33→10:20)
[2024-11-26] MEDS: AMPICILLIN SODIUM 2 GM in SODIUM CHLORIDE 0.9% IV 100 ML 200 ML IVPB (07:34)
--- NOTE | 2024-11-26 08:35 | WPDOBADMIT ---
Obstetrics - Admit Note Admission Note: record reviewed. No pertinent additions to the history and/or any subsequent changes in the physical findings that are not consistent with the expected course of the were found. Additions to the history and/or subsequent changes in the physical findings follow. admit for cholestasis in , sve 1.5/-2 attempt arom will continue with pitocin anticipate vaginal delivery
[2024-11-26] MEDS: OXYTOCIN 30 UNITS/NS 500 ML 30 UNITS/500 ML BAG IV CONT (08:58)
[2024-11-26 09:16] LABS: Syphilis IgG/IgM Antibody Non-Reactive (Nonreactive)
[2024-11-26] MEDS: AMPICILLIN SODIUM 1 GM in SODIUM CHLORIDE 0.9% IV 50 ML 100 ML IVPB (11:44)
--- NOTE | 2024-11-26 15:53 | PM.OBPRVD ---
OB - Vaginal Delivery Note Procedure Delivery date: 11/26/24 Events: Other (2 vessel cord, cholestasis) Induction method: AROM and Per Pitocin Protocol Delivery monitor: External FHT and Internal Uterine Route of delivery: Episiotomy description: None Laceration Description: None Specimen: No Quantitative Blood Loss (ml): 100 Anesthesia type: Epidural Disposition: Floor Complications: No immediate complications Baby Date of : 11/26/24 Time of : 15:43 Gestational Age by Date: 37 gender: Female presentation: vertex position: Left Occiput Anterior Placenta delivery description: Spontaneous Cord Vessel Description: 3 Vessels score one minute: 9 score five minutes: 9
[2024-11-26] MEDS: OXYTOCIN 30 UNITS/NS 500 ML 30 UNITS/500 ML BAG 125 UNITS IV CONT (16:12)
--- NOTE | 2024-11-26 18:32 | OBPPTRN ---
Patient transferred to post room #283 via wheelchair. Support person present. Oriented to unit, room, information board, rooming in, admission packet and security measures. Patient verbalizes understanding.
[2024-11-26] MEDS: ACETAMINOPHEN 325 MG TABLET 650 MG PO (20:55)
[2024-11-26] MEDS: IBUPROFEN 600 MG TABLET PO (20:55)
[2024-11-27] VITALS: BP 121/64; PULSE 83; RESP 15; TEMP 36.6; O2SAT 100
[2024-11-27 04:50] LABS: Hematocrit 28.2 % (37.0-47.0); Hemoglobin 9.0 g/dL (12.0-15.0)
[2024-11-27 07:20] VITALS: BP 127/67; PULSE 73; RESP 16; TEMP 36.6; O2SAT 100
[2024-11-27] MEDS: DOCUSATE SODIUM 100 MG CAPSULE PO ×2 (07:27→18:06)
[2024-11-27] MEDS: IBUPROFEN 600 MG TABLET PO (07:27)
[2024-11-27] MEDS: MULTIVIT/MIN/PREN/FOL AC/IRON TABLET 1 TAB PO (07:27)
[2024-11-27] MEDS: ACETAMINOPHEN 325 MG TABLET 650 MG PO ×2 (07:28→18:07)
[2024-11-27 11:50] VITALS: BP 114/75; PULSE 66; RESP 16; TEMP 36.7; O2SAT 97
--- NOTE | 2024-11-27 13:00 | P.PNOB_ITS ---
OB - PN: Subj Subjective Date/time seen: 11/27/24 13:00 Patient comments: no complaints, pain well controlled, incisional pain, tolerating diet and flatus present OB - PN: Obj Data Labs 11/27/24 03:53 Labs: Laboratory Results - last 24 hr 11/27/24 03:53 Hgb 9.0 L Hct 28.2 L OB - PN A/P Plan day: 1 Plan: routine care Comments: No problems, routine care Time Spent With Patient Time: Total time spent is greater than 50% in coordination of care (as documented) at patient's floor/unit and/or counseling patient: Exam 2 Const: General: comfortable, no acute distress and alert Resp: Effort & Inspection: normal respiratory effort Auscultation: no crackles, no rales and no rhonchi Cardio: Rate: regular rate Heart sounds: no click, no murmurs and no rubs GI: Inspection: non-distended GI Palp: No Tenderness to palpation present (GI) Auscultation: normal bowel sounds Other: Incision - CDI Extrem: General: normal to inspection, no pedal edema and no calf tenderness
--- NOTE | 2024-11-27 13:00 | P.DS_ITS ---
DS: Admitting Diagnosis Discharge Date 11/27/2024 Admitting Diagnosis Term OB - DS: Summary OB Procedures : None OB Procedures Intrapartum: Spontaneous Vag Delivery OB Procedures: : None Peripartum Data Laceration Description: None Episiotomy description: None Time Spent with Patient Time attestation: Total time spent providing and/or coordinating discharge services: DS: Data Data Completed and Pending Labs on day of discharge: Labs from last 24 hours 11/27/24 03:53 Hgb 9.0 L Hct 28.2 L Discharge Plan Discharge Discharging Clinician: Rodney Dawn Patient Disposition: Home Activity: pelvic rest Diet: regular Patient Instructions: Antibiotic Form Patient Language: Wolof Stand Alone Forms: General Discharge Information Follow-up/Referrals: Rodney Dawn MD [Physician, [facility]] Discharge Medications: Continued PNV no.95-ferrous fumarate-FA [] 28 mg iron- 800 mcg tablet 1 tablet PO DAILY ursodiol 300 mg capsule 300 mg PO BID Date of admission: 11/26/24 05:55 Primary Care Provider: UNKNOWN,DOCTOR Admitting Provider: Ramana Clarke Attending physician on admission: Ana Jolly Condition: Stable
--- NOTE | 2024-11-27 17:01 | WPDANLDPN2 ---
Anes-Prog Note L&D Date/Time: 11/27/24 17:01 Neuro status: Neuro function grossly intact. Cardiovascular status: normal Respiratory status: normal Airway patency: baseline Mental status: baseline Post-Op hydration status: normal Vital Signs: Last Vital Signs Temp 36.7 C 11/27/24 11:50 Pulse 66 11/27/24 11:50 Resp 16 11/27/24 11:50 BP 114/75 11/27/24 11:50 Pulse Ox 97 11/27/24 11:50 O2 Del Method Room Air 11/26/24 18:40 Pain score (VAS): 0 Post-procedural complaints: none Patient feedback: Patient satisfied with anesthetic care.
[2024-11-27 19:50] VITALS: BP 104/77; PULSE 67; RESP 16; TEMP 36.3; O2SAT 100
--- NOTE | 2024-11-28 07:55 | P.PNOB_ITS ---
OB - PN: Subj Subjective Date/time seen: 11/28/24 07:55 Interval history: pp day 2 doing well desires d/c home OB - PN: Obj Data Labs 11/27/24 03:53 OB - PN A/P Plan day: 2 Plan: routine care and discharge home Time Spent With Patient Time: Total time spent is greater than 50% in coordination of care (as documented) at patient's floor/unit and/or counseling patient: Review of Systems 2 Review of Systems: All systems reviewed & are unremarkable except as noted in HPI and below Exam 2 Const: General: cooperative, healthy appearing and comfortable Chest: Chest palpation & inspection: normal inspection of the chest Resp: Effort & Inspection: normal respiratory effort GI: Inspection: normal to inspection Skin: General skin exam: normal color Neuro: General: patient oriented x3
--- NOTE | 2024-11-28 07:56 | P.DS_ITS ---
DS: Admitting Diagnosis Discharge Date 11/28/24 Admitting Diagnosis IOL, cholestasis OB - DS: Summary OB Procedures : None OB Procedures Intrapartum: Spontaneous Vag Delivery OB Procedures: : None Peripartum Data Laceration Description: None Episiotomy description: None Time Spent with Patient Time attestation: Total time spent providing and/or coordinating discharge services: Discharge Plan Discharge Attending physician on discharge: Rodney Dawn Discharging Clinician: Rodney Dawn Patient Disposition: Home Activity: pelvic rest Diet: regular Patient Instructions: Antibiotic Form Patient Language: Japanese Stand Alone Forms: General Discharge Information Follow-up/Referrals: Rodney Dawn MD [Physician, DINING ROOM ATTENDANT] Discharge Medications: Continued PNV no.95-ferrous fumarate-FA [] 28 mg iron- 800 mcg tablet 1 tablet PO DAILY ursodiol 300 mg capsule 300 mg PO BID Date of admission: 11/26/24 05:55 Primary Care Provider: UNKNOWN,DOCTOR Admitting Provider: Ramana Clarke Attending physician on admission: Ana Jolly Condition: Stable
[2024-11-28 08:20] VITALS: BP 112/76; PULSE 72; RESP 16; TEMP 36.3; O2SAT 98
--- NOTE | 2024-11-28 11:01 | PC.NURSE ---
Consulted with mother concerning needs and she shared her ability to independently latch infant optimally without pain. Mother is feeding appropriately for growth of and understands stimulating to eat if needed. Infant has had appropriate feedings in the last 24 hours meets the outcomes for weight, output, blood sugar and jaundice at this time. Reinforced understanding of milk production, transition of milk, signs of adequate intake, transition of stool, prevention/relief of engorgement, plugged ducts, mastitis, responsive watching for feeding cues, the different methods of stimulating to breastfeed 1-3 hours after the start of the last feeding, community resources, and when to call a provider using the resource of the feeding sheet along with the mom and baby guide. Mother requested a breast pumping kit and to use the hospital electric breast pump before being discharged today, a kit was given and mother was given instructions on cleaning, care, usage, that there should be no pain, pumping schedule for milk production, collection, and storage of human milk. Patient was assessed for correct placement, flange size, to pump for comfort and nipple stretching/stimulation for adequate milk production. Mother voiced understanding of the education shared along with mom/baby guide and the pump measurement, flange fit handout for additional resource information. Mother does have her own breast pump at home that she is familiar with. Mother voiced understanding of the information shared, is confident to continue effectively her at home, when to call for assistance, denies any additional assistance or education at this time. Reported to the Primary RN.
== END 2024-11-28 13:13 | disposition home or self-care (01) | DRG 560 ==
LOC: ANHOB2 11-27 13:02 → ANHLDR 12-01 09:33
PROVIDERS: Advanced Practice Midwife; Admitting Provider Obstetrics & Gynecology; Visit Provider Obstetrics & Gynecology
DX: O26.643 Intrahepatic cholestasis of pregnancy, third trimester (principal); Z37.0 Single live birth; Z3A.37 37 weeks gestation of pregnancy; O69.81X0 Labor and delivery complicated by cord around neck, without compression, not applicable or unspecified
CPT/HCPCS: 36415; 85014; 85018; 85025; 86593; 86850; 86900; 86901; A9270; J0290; J2590; J2795; J7120